=== PATIENT | male | born 1945 | race Caucasian/White ===

== ENCOUNTER 2016-07-28 07:48 | Outpatient (CLI) | payer MEDICARE, OTHER ==
[2016-07-28] MEDS ORDERED: GADOBUTROL 10 MMOL/10 ML VIAL IVP ONE (08:56)
== END 2016-07-28 07:49 | disposition home or self-care (01) ==
DX: R41.3 Other amnesia (principal)
CPT/HCPCS: 70553; A9585

== ENCOUNTER 2016-09-24 11:39 | Day surgery (SDC) | payer MEDICARE, OTHER ==
[2016-09-24] MEDS ORDERED: LACTATED RINGERS 1,000 ML IV ONE ×2 (11:46→13:30)
[2016-09-24] MEDS ORDERED: MIDAZOLAM 2 MG/2 ML VIAL IVP ONE (12:58)
[2016-09-24] MEDS ORDERED: fentaNYL 100 MCG/2 ML VIAL IVP ONE (12:58)
[2016-09-24 14:14] VITALS: BP 102/53
== END 2016-09-24 11:40 | disposition home or self-care (01) ==
LOC: SDS 11:39
PROVIDERS: ATTEND Surgery
PROC: 0DBL8ZX Excision of Transverse Colon, Via Natural or Artificial Opening Endoscopic, Diagnostic (ICD-10-PCS; 2016-09-24)
PROC: 0DBM8ZX Excision of Descending Colon, Via Natural or Artificial Opening Endoscopic, Diagnostic (ICD-10-PCS; principal; 2016-09-24 12:45)
DX: R19.4 Change in bowel habit (principal); K57.30 Diverticulosis of large intestine without perforation or abscess without bleeding; D12.4 Benign neoplasm of descending colon; D12.3 Benign neoplasm of transverse colon; K64.8 Other hemorrhoids; E11.9 Type 2 diabetes mellitus without complications; F17.210 Nicotine dependence, cigarettes, uncomplicated; J44.9 Chronic obstructive pulmonary disease, unspecified; F32.9 Major depressive disorder, single episode, unspecified; I10 Essential (primary) hypertension; Z79.4 Long term (current) use of insulin; Z82.61 Family history of arthritis; Z81.8 Family history of other mental and behavioral disorders; Z79.82 Long term (current) use of aspirin
CPT/HCPCS: 45385; J7120; 88305

== ENCOUNTER 2017-08-24 12:05 | Outpatient (CLI) | payer MEDICARE, OTHER ==
[2017-08-24] MEDS ORDERED: IOPAMIDOL-300 50 ML VIAL ONE (12:21)
[2017-08-24] MEDS ORDERED: IOPAMIDOL-300 100 ML VIAL ONE (12:21)
[2017-08-24 13:22] LABS: CREATININE 1.5 mg/dL (0.6-1.2)
[2017-08-24] MEDS ORDERED: IOPAMIDOL-300 50 ML VIAL PO ONE (15:04)
[2017-08-24] MEDS ORDERED: IOPAMIDOL-300 100 ML VIAL IVP ONE (15:04)
--- NOTE | 2017-08-25 14:11 | CT Report ---
EXAM: CT ABDOMEN AND PELVIS EXAM DATE: 08/24/2017 01:43 PM. CLINICAL HISTORY: ABDOMINAL MASS. COMPARISONS: None. TECHNIQUE: Routine helical CT imaging was performed through the abdomen and pelvis. IV contrast: ISOV UE 300 80mL. Enteric contrast: Positive. Reconstructions: Coronal and sagittal. In accordance with CT protocol optimization, one or more of the following dose reduction techniques w ere utilized for this exam: automated exposure control, adjustment of mA and/or KV based on patient s ize, or use of iterative reconstructive technique. FINDINGS: Lung Bases: Mild interstitial scarring at the lung bases. Indeterminate 3 mm RML nodule (3/9). Liver: Normal. No masses. Gallbladder/Bile Ducts: Unremarkable. Spleen: Normal. Pancreas: Normal. Adrenal Glands: Normal. Kidneys: None starting 2 mm left lower pole renal calculus. No masses or hydronephrosis. Peritoneal Cavity/Bowel: Extensive primarily sigmoid colonic diverticulosis without convincing focal evidence of acute diverticulitis. No free fluid, free air or adenopathy. No masses or acute inflammat ory process. Appendix is not clearly visualized; no pericecal inflammatory changes are evident. Pelvic Organs: Coarse prostate calcifications. The bladder and visualized pelvic organs are otherwise within normal limits. Vasculature: No aneurysms or other significant abnormality. Atherosclerotic arterial calcifications a re present. Bones: No significant abnormality. Other: There is a small fat-containing umbilical hernia. There is a small fat-containing supraumbilic al ventral hernia. There are small fat-containing inguinal hernias or cord lipomata bilaterally, left larger than right. IMPRESSION: 1. No convincing acute abdominopelvic process. 2. Fat-containing umbilical, supraumbilical ventral hernias. 3. Diverticulosis. 4. Indeterminate 3 mm pulmonary nodule. Consider [address] follow-up to demonstrate stability . 5. Other findings as noted above. [facility] Referring Provider Line: [phone] SITE ID: [id number]
== END 2017-08-24 12:06 | disposition home or self-care (01) ==
LOC: DI 12:05
PROVIDERS: ATTEND Family Medicine
DX: R19.00 Intra-abdominal and pelvic swelling, mass and lump, unspecified site (principal); K42.9 Umbilical hernia without obstruction or gangrene; K43.9 Ventral hernia without obstruction or gangrene; K57.30 Diverticulosis of large intestine without perforation or abscess without bleeding
CPT/HCPCS: 74177; 82565; Q9967

== ENCOUNTER 2017-09-06 11:32 | Outpatient (CLI) | payer MEDICARE, OTHER ==
[2017-09-06 19:44] LABS: CALCIUM 9.5 mg/dL (8.5-10.3); CREATININE 1.1 mg/dL (0.6-1.2)
[2017-09-06 19:52] LABS: HEMOGLOBIN A1C 0.86 g/dL; HEMOGLOBIN A1C % 7.1 % (4.6-6.2)
== END 2017-09-06 11:33 | disposition home or self-care (01) ==
LOC: LAB.WCP 11:32
PROVIDERS: ATTEND Family Medicine
DX: E10.9 Type 1 diabetes mellitus without complications (principal)
CPT/HCPCS: 36415; 80048; 82043; 83036

== ENCOUNTER 2017-12-24 06:07 | Day surgery (SDC) | payer MEDICARE, OTHER ==
[2017-12-24] MEDS ORDERED: ceFAZolin 2 GM/50 ML 2 GM/50 ML BAG IV ONE (06:28)
[2017-12-24] MEDS ORDERED: LACTATED RINGERS 1,000 ML IV ONE ×2 (06:50→08:17)
[2017-12-24] MEDS ORDERED: BUPIVACAINE 0.5% PF 30 ML VIAL ONE (07:10)
--- NOTE | 2017-12-24 07:19 | ANESTHESIA ---
Pre-Anesthesia VS, & Labs - Diagnosis Ventral and Umbilical Hernia - Procedure Ventral and Umbilical Hernia Repair Vital Signs: Temp Pulse Resp BP Pulse Ox 36.6 C 16 132/74 H 95 12/24/17 06:34 12/24/17 06:34 12/24/17 06:34 12/24/17 06:34 Pulse 69 Height 5 ft 7 in Weight (kg) 87.7 kg Body Mass Index 29.7 - NPO Last Fluid Intake: 0430 CL - Lab Results Lab results reviewed: Yes Home Medications and Allergies Home Medications: Ambulatory Orders Medication Instructions Recorded Confirmed Acetaminophen [Tylenol] 650 mg PO Q6H PRN 02/10/14 12/24/17 Atorvastatin [Lovastatin] 20 mg PO DAILY 02/10/14 12/24/17 Bupropion HCl [Wellbutrin] 75 mg PO DAILY 02/10/14 12/24/17 Cholecalciferol (Vitamin D3) 1,000 unit PO DAILY 02/10/14 12/24/17 [Vitamin D3] Insulin Aspart (Vial) [NovoLOG] 10 - 26 unit SQ AC 02/10/14 12/24/17 Insulin Glargine,Hum.rec.anlog 45 unit SQ TID 02/10/14 12/24/17 [Lantus] Lisinopril 20 mg PO DAILY 11/11/14 12/24/17 Tiotropium [place] [Spiriva] 18 mcg IH DAILY 11/11/14 12/24/17 [place]-3 Acid Ethyl Esters [Lovaza] 1 cap PO QID 12/24/17 12/24/17 Allergies/Adverse Reactions: Allergies Allergy/AdvReac Type Severity Reaction Status Date / Time No Known Drug Allergies Allergy Verified 02/10/14 11:47 Anes History & Medical History - Anesthetic History Anesthesia Complications: reports: No previous complications Family history of Anesthesia Complications: Denies Family history of Malignant Hyperthermia: Denies - Medical History Cardiovascular: reports: Hypertension, High cholesterol Pulmonary: reports: COPD, Emphysema, Other Gastrointestinal: reports: GERD, Colon polyps, Hemorrhoids, Pancreatitis, Diverticulitis Urinary: reports: None Neuro: reports: Dementia Musculoskeletal: reports: None Endocrine/Autoimmune: reports: Type 1 diabetes Blood Disorders: reports: None Skin: reports: None Smoking Status: Current every day smoker Psychosocial: reports: Cannabis - Surgical History General: Colonoscopy Eyes Ears Nose Throat (EENT): Cataracts Orthopedic: Arthroscopic surgery Exam General: Alert, Oriented x3, Cooperative, No acute distress Dental: WNL Mouth Openin Fingerbreadth Neck Mobility: Normal Mallampati classification: II Thyromental Distance: 4-6 cm Respiratory: Lungs clear, Normal breath sounds, No respiratory distress, No accessory muscle use Cardiovascular: Regular rate, Normal S1, Normal S2, No murmurs Mental/Cognitive Status: Alert/Oriented X3, Normal for patient Cognitive Status: Memory impairment Plan Anesthesia Type: General Consent for Procedure(s) Verified and Reviewed: Yes Code Status: Attempt Resuscitation ASA classification: 3-Severe systemic disease Is this case an emergency?: No
[2017-12-24] MEDS ORDERED: BUPIVACAINE 0.5% PF 30 ML VIAL INFIL ONE ×2 (08:13→09:09)
[2017-12-24] MEDS ORDERED: ONDANSETRON 4 MG/2 ML VIAL IVP ONE (09:00)
[2017-12-24] MEDS ORDERED: HYDROmorphone 1 MG/ML AMP IVP ONE (09:00)
[2017-12-24] MEDS ORDERED: PROPOFOL 200 MG/20 ML VIAL IVP ONE (09:00)
[2017-12-24] MEDS ORDERED: fentaNYL 100 MCG/2 ML VIAL IVP ONE (09:00)
[2017-12-24] MEDS ORDERED: ROCURONIUM 50 MG/5 ML VIAL IVP ONE (09:00)
[2017-12-24] MEDS ORDERED: ePHEDrine 50 MG/ML VIAL IVP ONE (09:00)
[2017-12-24] MEDS ORDERED: IPRATROPIUM/ALBUTEROL 3 ML NEB INH ONE ×3 (09:32→11:15)
--- NOTE | 2017-12-24 09:43 | OPERATIVE REPORT ---
Operative Report - General Procedure Date: 12/24/17 Planned Procedure: Ventral herniorrhaphy and umbilical herniorrhaphy Pre-Op Diagnosis: Ventral hernia and umbilical hernia Procedure Performed: Ventral herniorrhaphy 2 and umbilical herniorrhaphy (combined defects to result in one repair) with mesh Post Op Diagnosis: Ventral hernia 2 and umbilical hernia - Procedure Note Primary Surgeon: Valente Mena MD Anesthesia Provider: Yamilka Bryant CRNA Anesthesia Technique: General LMA, Local (30 mL of half percent Marcaine) IV Fluids (mL): 1,600 Estimated Blood Loss (mL): 10 Complications: None. - Other Other Information/Narrative: OPERATIVE DESCRIPTION/REPORT: After verbal and written informed consent was obtained detailing the risks of infection, bleeding requiring transfusion with its risks, nerve injury, and , and after I met with the patient confirming the surgery and the site of the surgery, the patient was brought to the operative suite and placed supine on the operating table. Great care was taken to avoid pressure points to prevent pressure necrosis or nerve injury. Monitoring devices were applied along with TEDs and pneumatic compressive stockings (to prevent DVT). The patient received preoperative antibiotics for surgical prophylaxis. Yamilka Bryant CRNA sedated and anesthetized the patient for the entire procedure. The patient was prepped and draped in the usual sterile manner. With the patient draped my initials were clearly visible. A "time in" then confirmed that the patient was identified with 3 identifiers (name, date and medical record number), the history and physical was in the chart, the signed consent confirming the procedure was in the chart, the patient was in the correct position, the aforementioned prophylactic measures were in place or given, we had the correct personel and equipment to complete the procedure and that anesthesia, surgery and nursing were given an opportunity to express any concerns. With the agreement of everyone in the room, we proceeded with the operation. A vertical midline incision was made overlying the mass at the ventral hernia site and dissection was carried down to the hernia sac using a combination of Metzenbaum scissors, scalpel, and Bovie electrocautery. The sac was resected using Bovie electrocautery. The sac was cleared of overlying adherent tissue, and the fascial defect was delineated. Digital examination of the patient's anterior abdominal wall showed no further hernias superiorly to this defect but there was another hernia inferior to this defect mcc between this defect in the umbilical defect. The skin incision was then lengthened inferiorly to access this hernia and in a similar manner the hernia sac was resected. An incision was then made vertically at the umbilicus and dissection down to the hernia sac again was done in a similar manner and the sac again was resected using Bovie electrocautery. Rather than fix 3 separate hernias with 3 separate pieces of mesh the small fascial bridges that were between these hernias were incised using Bovie electrocautery thus combining all the defects into one larger defect. This defect measured just under 6 cm in length. Again I felt around the patient's abdomen and there was some abnormal tissue inferior to the fascial defect which was quite granular in nature. This did appear to be fat but it was much harder than fat should be. This was resected using serial application of Bovie electrocautery and sent for pathologic evaluation. The fascia was cleared of any adherent tissue for a distance 1.5 cm from the combined defect. The defect was closed using an 8 cm in diameter Covidien Parietex (Ref# [id number], Lot# [id number], use by date 2022-03-05) sewing it in place using interrupted 2-0 PDS at the stations of the clock. The fascia was then sewn over this using #1 PDS to increase the contact with the mesh. The subcutaneous tissues were copiously irrigated, and then closed using an interrupted 2-0 Vicryl. The skin and fascia was then injected with 1/2% Marcaine. Meticulous hemostasis was obtained using Bovie electrocautery. The skin incision was approximated with a running 4-0 Monocryl. At this point a time out was performed that confirmed that all the counts were correct, the procedure that was performed, the blood loss, the IV fluids administered, and the patient s condition. Having tolerated the procedure well, the patient was subsequently extubated and taken to recovery room in good and stable condition.
[2017-12-24] MEDS ORDERED: fentaNYL 100 MCG/2 ML VIAL ONE (09:49)
[2017-12-24] MEDS ORDERED: oxyCOD/ACETAMIN 5 MG/325 MG TABLET PO ONE (10:53)
[2017-12-24 11:38] VITALS: BP 148/80
== END 2017-12-24 06:08 | disposition home or self-care (01) ==
LOC: SDS 06:07
PROVIDERS: ATTEND Surgery
PROC: 0WUF0JZ Supplement Abdominal Wall with Synthetic Substitute, Open Approach (ICD-10-PCS; principal; 2017-12-24 07:30)
DX: K42.9 Umbilical hernia without obstruction or gangrene (principal); K43.9 Ventral hernia without obstruction or gangrene; E10.9 Type 1 diabetes mellitus without complications; I10 Essential (primary) hypertension; F17.210 Nicotine dependence, cigarettes, uncomplicated; E78.00 Pure hypercholesterolemia, unspecified; J43.9 Emphysema, unspecified; F03.90 Unspecified dementia, unspecified severity, without behavioral disturbance, psychotic disturbance, mood disturbance, and anxiety; K21.9 Gastro-esophageal reflux disease without esophagitis; Z79.4 Long term (current) use of insulin; Z79.899 Other long term (current) drug therapy
CPT/HCPCS: 49560; 49585; A9270; C1781; J0690; J1170; J7120

== ENCOUNTER 2018-12-03 10:29 | Outpatient (CLI) | payer MEDICARE, OTHER ==
[2018-12-03 10:59] LABS: CALCIUM 9.4 mg/dL (8.5-10.3); CREATININE 1.3 mg/dL (0.6-1.2)
[2018-12-03 11:09] LABS: HB2 TOTAL 15.1 g/dL; HEMOGLOBIN A1C 0.82 g/dL; HEMOGLOBIN A1C % 7.1 % (4.6-6.2)
[2018-12-03 12:23] LABS: CREATININE,URINE 54.2 mg/dL; MICROALBUM/CREATININE RATIO,UR 134.7 ug/mg (<30.0); MICROALBUMIN,URINE 7.3 mg/dL (0-300.0)
--- NOTE | 2018-12-05 04:34 | XRAY Report ---
Reason: E109,LUMBAR RADICULOPATHY,LEFT Procedure Date: 12/03/2018 Accession Number: [id number] / [id number] Procedure: XR - Lumbar Spine Complete CPT Code: FULL RESULT: EXAM: LUMBOSACRAL SPINE RADIOGRAPHY EXAM DATE: 12/03/2018 11:42 AM. CLINICAL HISTORY: E109,LUMBAR RADICULOPATHY,LEFT. COMPARISONS: ABDOMEN/PELVIS W/ 08/24/2017 1:29 PM. TECHNIQUE: 3 views. FINDINGS: Alignment: Mild dextroscoliosis of the lumbar spine. Bones: Five [id number] lumbar vertebral bodies are present as well as a transitional lumbosacral vertebral body designated as S1. No fractures or bone lesions. Disks: Moderate multilevel degenerative disk disease throughout the lumbar spine. Facets: Moderate facet joint arthropathy at L4-L5 and L5-S1. Sacroiliac Joints: Unremarkable. Soft Tissues: Normal. The visualized bowel gas pattern is normal. IMPRESSION: 1. No acute osseous abnormalities. 2. Mild dextroscoliosis of lumbar spine. 3. 5 lumbar type vertebrae and a transitional lumbosacral vertebral body designated as S1. 4. Moderate multilevel degenerative disk disease. 5. Moderate facet joint arthropathy at L4-L5 and L5-S1 [facility]
== END 2018-12-03 10:30 | disposition home or self-care (01) ==
LOC: LAB 10:29 → DI 10:30
PROVIDERS: ATTEND Family Medicine
DX: M51.36 Other intervertebral disc degeneration, lumbar region (principal); M47.816 Spondylosis without myelopathy or radiculopathy, lumbar region; M47.817 Spondylosis without myelopathy or radiculopathy, lumbosacral region; E10.9 Type 1 diabetes mellitus without complications; M41.86 Other forms of scoliosis, lumbar region
CPT/HCPCS: 36415; 72110; 80048; 82043; 82570; 83036

== ENCOUNTER 2019-01-30 10:26 | Outpatient (CLI) | payer MEDICARE, OTHER ==
--- NOTE | 2019-01-31 21:18 | XRAY Report ---
Reason: CERVICAL RADICULOPATHY Procedure Date: 01/30/2019 Accession Number: [id number] / [id number] Procedure: XRN - Cervical Spine 2 View CPT Code: FULL RESULT: EXAM: CERVICAL SPINE RADIOGRAPHY EXAM DATE: 01/30/2019 10:51 AM. CLINICAL HISTORY: Cervical radiculopathy. COMPARISONS: None. TECHNIQUE: 3 views. FINDINGS: Alignment: Normal. No spondylolisthesis or scoliosis. Bones and Disk Levels: C4 vertebral body not seen, possibly posttraumatic changes or unusual congenital variant. C7 not seen on the lateral view. Severe cervical facet degenerative changes diffusely. Soft Tissues: Normal. No prevertebral soft tissue swelling. The visualized lung apices are clear. IMPRESSION: 1. Incompletely viewed cervical spine with C7 not seen on the lateral view. 2. Unusual appearance of C3 through C5 with possible fusion but with less than expected vertebral body height loss. This may reflect posttraumatic or developmental changes. If indicated, MRI or CT could be considered. 3. Diffuse facet degenerative changes. [facility]
== END 2019-01-30 10:27 | disposition home or self-care (01) ==
LOC: DI.N 10:26
PROVIDERS: ATTEND Family Medicine
DX: M47.812 Spondylosis without myelopathy or radiculopathy, cervical region (principal)
CPT/HCPCS: 72040

== ENCOUNTER 2019-02-19 12:35 | Outpatient (CLI) | payer MEDICARE, OTHER ==
--- NOTE | 2019-02-20 13:21 | MRI Report ---
Reason: CERVICAL RADULOPATHY Procedure Date: 02/19/2019 Accession Number: [id number] / [id number] Procedure: MRI - Cervical Spine W/O CPT Code: FULL RESULT: EXAM: MRI CERVICAL SPINE WITHOUT CONTRAST EXAM DATE: 02/19/2019 01:43 PM. CLINICAL HISTORY: CERVICAL RADICULOPATHY. COMPARISONS: 01/30/2019 cervical spine radiographs.. TECHNIQUE: Multiplanar, multisequence T1-weighted and fluid-sensitive sequences of the cervical spine without contrast. Other: None. FINDINGS: Neurologic Structures: The visualized posterior fossa structures are unremarkable. No signal abnormality in the visualized spinal cord. Alignment: Grade 1 anterolisthesis of C2 and C3 measures 2 mm. Grade 1 anterolisthesis C6 on C7 measures 2 mm. Bone Marrow: No fractures. No osseous lesions. Vertebral body heights are maintained. Mixed Modic type I and II endplate degenerative changes surround the EC 5-C6 disk space asymmetric to the right. There are also Modic type I endplate degenerative changes surrounding the C4-C5 disk space. Interspace Levels/Facets: C1-C2: Unremarkable. C2-C3: Severe left and moderate right facet arthropathy. Shallow central disk protrusion. Mild central canal and moderate left foraminal stenosis. C3-C4: Severe intervertebral disk height loss with partial osseous bridging across the disk space. Severe left and mild right facet arthropathy. Broad-based disk-osteophyte complex partially effaces the ventral CSF without impinging upon the cord. Moderate left and mild right foraminal stenosis. C4-C5: All intervertebral disk height loss. No disk bulge or protrusion. Severe bilateral facet arthropathy and asymmetric right uncovertebral hypertrophy results in moderate right and mild left foraminal stenosis without central canal stenosis. Subchondral edema is present in the bilateral facets. C5-C6: Severe intervertebral disk height loss. Broad-based disk-osteophyte complex with moderate bilateral facet arthropathy results in effacement of the ventral CSF and flattening of the cord with partial effacement of the dorsal CSF. Severe right and mild left foraminal stenosis. C6-C7: Mild intervertebral disk height loss. Shallow central disk protrusion. Moderate bilateral facet arthropathy. Partial effacement of the ventral CSF without cord impingement. No foraminal stenosis. C7-T1: Unremarkable. Musculature: Normal. No edema or fatty atrophy. Other: The paravertebral and prevertebral soft tissues are normal. IMPRESSION: 1. As C5-C6, there is moderate central canal stenosis with severe right and mild left foraminal stenosis. 2. Shallow disk-osteophyte complexes cause mild central canal stenosis at C2-C3, C3-C4, and C6-C7. 3. Foraminal stenosis is moderate on the left at C2-C3 and C3-C4 and moderate on the right at C4-C5. 4. Severe bilateral facet arthropathy at C4-C5 is associated with subchondral marrow edema. [facility]
== END 2019-02-19 12:36 | disposition home or self-care (01) ==
LOC: DI 12:35
PROVIDERS: ATTEND Family Medicine
DX: M47.812 Spondylosis without myelopathy or radiculopathy, cervical region (principal); M50.21 Other cervical disc displacement, high cervical region; M50.31 Other cervical disc degeneration, high cervical region; M48.02 Spinal stenosis, cervical region; M43.12 Spondylolisthesis, cervical region
CPT/HCPCS: 72141

== ENCOUNTER 2020-05-26 19:50 | Outpatient (CLI) | payer MEDICARE, OTHER | END 2020-05-26 19:51 | disposition home or self-care (01) | LOC: COV 19:50 | PROVIDERS: ATTEND Surgery | DX: Z01.812 Encounter for preprocedural laboratory examination (principal); K40.90 Unilateral inguinal hernia, without obstruction or gangrene, not specified as recurrent; E11.9 Type 2 diabetes mellitus without complications; Z79.4 Long term (current) use of insulin; Z20.822 Contact with and (suspected) exposure to COVID-19 ==

== ENCOUNTER 2020-05-31 07:40 | Day surgery (SDC) | payer MEDICARE, OTHER ==
[~2020-05-31 07:40] MED LIST: ceFAZolin 2 GM/50 ML 0 GM/0 ML BAG IV ONE
[2020-05-31 08:05] VITALS: BP 140/86
[2020-05-31] MEDS ORDERED: LACTATED RINGERS 1,000 ML IV ONE (08:28)
== END 2020-05-31 07:41 | disposition home or self-care (01) ==
LOC: SDS 07:40
PROVIDERS: ATTEND Surgery
DX: Z53.9 Procedure and treatment not carried out, unspecified reason (principal)

== ENCOUNTER 2020-06-02 18:42 | Outpatient (CLI) | payer MEDICARE, OTHER | END 2020-06-02 18:43 | disposition home or self-care (01) | LOC: COV 18:42 | PROVIDERS: ATTEND Internal Medicine | DX: Z01.812 Encounter for preprocedural laboratory examination (principal); K40.90 Unilateral inguinal hernia, without obstruction or gangrene, not specified as recurrent; E11.9 Type 2 diabetes mellitus without complications; Z79.4 Long term (current) use of insulin; Z20.822 Contact with and (suspected) exposure to COVID-19 ==

== ENCOUNTER 2020-06-09 20:06 | Outpatient (CLI) | payer MEDICARE, OTHER | END 2020-06-09 20:07 | disposition home or self-care (01) | LOC: COV 20:06 | PROVIDERS: ATTEND Surgery | DX: Z01.812 Encounter for preprocedural laboratory examination (principal); K40.90 Unilateral inguinal hernia, without obstruction or gangrene, not specified as recurrent; E11.9 Type 2 diabetes mellitus without complications; Z79.4 Long term (current) use of insulin; Z20.822 Contact with and (suspected) exposure to COVID-19 ==

== ENCOUNTER 2020-06-14 07:18 | Day surgery (SDC) | payer MEDICARE, OTHER ==
[~2020-06-14 07:18] MED LIST changes: -ceFAZolin 2 GM/50 ML 0 GM/0 ML BAG IV ONE; +ceFAZolin 2 GM/50 ML 2 GM/50 ML BAG IV ONE
[2020-06-14] MEDS ORDERED: LACTATED RINGERS 1,000 ML IV ONE ×2 (07:37→10:54)
[2020-06-14] MEDS ORDERED: fentaNYL 100 MCG/2 ML VIAL ONE (07:57)
[2020-06-14] MEDS ORDERED: KETAMINE 500 MG/10 ML VIAL ONE (07:57)
[2020-06-14] MEDS ORDERED: MIDAZOLAM 2 MG/2 ML VIAL ONE (07:57)
[2020-06-14] MEDS ORDERED: PROPOFOL 200 MG/20 ML VIAL IVP ONE (07:58)
[2020-06-14] MEDS ORDERED: ONDANSETRON 4 MG/2 ML VIAL ONE (08:05)
[2020-06-14] MEDS ORDERED: BUPIVACAINE 0.25% PF 30 ML VIAL ONE (08:30)
--- NOTE | 2020-06-14 08:40 | ANESTHESIA ---
Pre-Anesthesia VS, & Labs - Diagnosis left inguinal hernia - Procedure left inguinal hernia repair Vital Signs: Temp Pulse Resp BP Pulse Ox 36.7 C 102 H 16 146/86 H 97 06/14/20 07:39 06/14/20 07:39 06/14/20 07:39 06/14/20 07:39 06/14/20 07:39 Height: 5 ft 5 in Weight (kg): 73.5 kg Body Mass Index: 26.9 BMI Classification: Overweight - NPO Other (0545 gingerale) - Lab Results Current Lab Results: Laboratory Tests 06/14/20 07:49: POC Whole Bld Glucose 211 H Home Medications and Allergies Acetaminophen [Tylenol] 650 mg PO Q6H PRN 02/10/14 Atorvastatin [Lovastatin] 40 mg PO DAILY 02/10/14 Bupropion HCl [Wellbutrin] 150 mg PO DAILY 02/10/14 Cholecalciferol (Vitamin D3) [Vitamin D3] 5,000 unit PO DAILY 02/10/14 Insulin Aspart (Vial) [NovoLOG] 20 - 24 unit SQ TIDWM 02/10/14 Insulin Glargine,Hum.rec.anlog [Lantus] 40 unit SQ TID 02/10/14 Lisinopril 20 mg PO DAILY 11/11/14 Tiotropium [place] [Spiriva] 18 mcg IH DAILY 11/11/14 [place]-3 Acid Ethyl Esters [Lovaza] 1 cap PO QID 12/24/17 Cyanocobalamin (Vitamin B-12) [Vitamin B-12] 5,000 mcg PO DAILY 05/19/20 Fluticasone Propionate 2 spray NS DAILY PRN 05/19/20 Meloxicam [Mobic] 7.5 mg PO DAILY 05/19/20 Allergies/Adverse Reactions: Allergies Allergy/AdvReac Type Severity Reaction Status Date / Time No Known Drug Allergies Allergy Verified 02/10/14 11:47 Anes History & Medical History - Anesthetic History Anesthesia Complications: reports: No previous complications Family history of Anesthesia Complications: Denies Family history of Malignant Hyperthermia: Denies - Medical History Cardiovascular: reports: Hypertension, High cholesterol Pulmonary: reports: COPD, Emphysema Gastrointestinal: reports: GERD, Colon polyps, Hemorrhoids, Pancreatitis, Diverticulitis Urinary: reports: None Neuro: reports: Dementia Musculoskeletal: reports: Chronic back pain Endocrine/Autoimmune: reports: Type 1 diabetes Blood Disorders: reports: None Skin: reports: None Smoking Status: Current every day smoker - Surgical History General: Colonoscopy Eyes Ears Nose Throat (EENT): Cataracts Orthopedic: Arthroscopic surgery, Spine surgery Exam Dental: WNL Mouth Openin Fingerbreadth Neck Mobility: Normal Mallampati classification: II Plan Anesthesia Type: MAC Consent for Procedure(s) Verified and Reviewed: Yes Code Status: Attempt Resuscitation ASA classification: 3-Severe systemic disease Is this case an emergency?: No
[2020-06-14] MEDS ORDERED: LIDOCAINE 2%-EPI 1:100000 20 ML MDV ONE (08:44)
--- NOTE | 2020-06-14 08:59 | HISTORY & PHYSICAL EXAMINATION ---
Chief Complaint - Chief Complaint Chief Complaint: left groin bulge History of Present Illness - History Obtained From Records Reviewed: yes History obtained from: patient Exam Limitations: none - History of Present Illness HPI Comment/Other: Progressive left inguinal hernia. History - Past Medical History Cardiovascular: reports: Hypertension, High cholesterol Respiratory: reports: COPD, Emphysema Neuro: reports: Dementia Endocrine/Autoimmune: reports: Type 1 diabetes GI: reports: GERD, Colon polyps, Hemorrhoids, Pancreatitis, Diverticulitis : reports: None HEENT: reports: Chronic sinusitis, Chronic hearing loss Psych: reports: Depression, Anxiety Musculoskeletal: reports: Chronic back pain Derm: reports: None MRSA Hx?: No - Past Surgical History General: reports: Colonoscopy Ortho: reports: Arthroscopic surgery, Spine surgery HEENT: reports: Cataracts Meds/Allgy - Home Medications Home Medications: Ambulatory Orders Medication Instructions Recorded Confirmed Acetaminophen [Tylenol] 650 mg PO Q6H PRN 02/10/14 05/31/20 Atorvastatin [Lovastatin] 40 mg PO DAILY 02/10/14 05/31/20 Bupropion HCl [Wellbutrin] 150 mg PO DAILY 02/10/14 05/31/20 Cholecalciferol (Vitamin D3) 5,000 unit PO DAILY 02/10/14 05/31/20 [Vitamin D3] Insulin Aspart (Vial) [NovoLOG] 20 - 24 unit SQ TIDWM 02/10/14 05/31/20 Insulin Glargine,Hum.rec.anlog 40 unit SQ TID 02/10/14 05/31/20 [Lantus] Lisinopril 20 mg PO DAILY 11/11/14 05/31/20 Tiotropium [place] [Spiriva] 18 mcg IH DAILY 11/11/14 05/31/20 [place]-3 Acid Ethyl Esters [Lovaza] 1 cap PO QID 12/24/17 05/31/20 Cyanocobalamin (Vitamin B-12) 5,000 mcg PO DAILY 05/19/20 05/31/20 [Vitamin B-12] Fluticasone Propionate 2 spray NS DAILY PRN 05/19/20 05/31/20 Meloxicam [Mobic] 7.5 mg PO DAILY 05/19/20 05/31/20 - Allergies Allergies/Adverse Reactions: Allergies Allergy/AdvReac Type Severity Reaction Status Date / Time No Known Drug Allergies Allergy Verified 02/10/14 11:47 Review of Systems - Other Findings Other Findings: 10 pt ros as above otherwise unremarkable Exam - Vital Signs Reviewed Vital Signs: Yes Vital Signs: Vital Signs x48h Temp Pulse Resp BP Pulse Ox 06/14/20 07:39 36.7 C 102 H 16 146/86 H 97 - Physical Exam General Appearance: positive: No acute distress, Alert Eyes Bilateral: positive: Normal inspection, EOMI Neck: positive: No JVD, Trachea midline Respiratory: positive: No respiratory distress, Breath sounds nml Cardiovascular: positive: Regular rate & rhythm Abdomen: positive: No distention, Other (left inguinal hernia present) Neurologic/Psychiatric: positive: Oriented x3 Conclusion/Plan - Problem List (1) Inguinal hernia Conclusion/Plan: left inguinal hernia. progressing in size and discomfort. Plan open repair with mesh. parq held and consent obtained
[2020-06-14] MEDS ORDERED: LIDOCAINE 2%-EPI 1:100000 20 ML MDV SUBQ ONE ×2 (09:26)
[2020-06-14] MEDS ORDERED: BUPIVACAINE 0.25% PF 30 ML VIAL SUBQ ONE ×2 (09:26)
[2020-06-14] MEDS ORDERED: HYDROcod/ACETAM 5/325 MG TABLET PO PRN (10:56)
--- NOTE | 2020-06-14 10:56 | OPERATIVE REPORT ---
Operative Report - General Procedure Date: 06/14/20 Planned Procedure: open left inguinal hernia with mesh Pre-Op Diagnosis: left inguinal hernia Procedure Performed: open lih repair with mesh Post Op Diagnosis: indirect and direct - Procedure Note Primary Surgeon: dorota tineo Anesthesia Technique: Local, MAC Pathology: not sent Complications: none
[2020-06-14 11:00] VITALS: BP 106/60
--- NOTE | 2020-06-14 11:47 | OPERATIVE REPORT ---
DATE OF SERVICE: 06/14/2020 Physician: Marc Duke MD PREOPERATIVE DIAGNOSIS: Left inguinal hernia. POSTOPERATIVE DIAGNOSIS: Left inguinal hernia, large direct and indirect. PROCEDURE PERFORMED: Open left inguinal hernia repair with mesh, [place]. SURGEON: Marc Duke MD. ROLL CUTTING OPERATOR: None. ANESTHESIA: 1. Monitored anesthesia care. 2. IV sedation and local anesthesia. COMPLICATIONS: None. 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 ESTIMATED BLOOD LOSS: None. COMPLICATIONS: None. PROSTHETIC: Polypropylene mesh. INDICATIONS FOR PROCEDURE: The patient is an active 75-year-old gentleman with a large symptomatic left inguinal hernia. He presents for open repair with mesh. Risks discussed, alternatives discussed, all questions answered, and consent obtained. DETAILS OF PROCEDURE: The patient was properly identified and brought to the operating room and placed in supine position. Monitored anesthesia care was given as well as IV sedation. He was prepped and draped in a sterile fashion, given preoperative antibiotics. Local anesthetic was given throughout the procedure. A 6 cm incision was made in the direction of Nigel's lines just cephalad of the pubic tubercle. Dissection proceeded sharply. The superficial epigastric vein was identified, clamped, divided, and tied with 3-0 Vicryl. The aponeurosis was opened in the direction of its fibers, extending to the external ring. The cord structures were brought up. The ilioinguinal nerve was kept with the cord structures. 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 This was removed back to musculature to allow for repair. The cord structures were mobilized away from a large direct defect. The floor was repaired with a 2-0 silk pursestring suture, imbricating the large direct defect. The patient also had a large indirect hernia sac densely scarred to the cord structures. It was carefully peeled away and mobilized down to the internal ring. The indirect hernia sac was suture ligated with a 2-0 silk. Herniated preperitoneal adipose tissue was also removed. Polypropylene mesh was then cut to size with tails. It was secured at the pubic tubercle area along the shelving border of Poupart's ligament and medially along the musculature fascia of the internal plica. The medial tail of the mesh was secured to Poupart's ligament with 2 interrupted 0 Ethibond sutures, recreating the internal ring of appropriate size. The patient coughed, assuring a good sturdy repair. The aponeurosis was closed with a running 2-0 Vicryl. Christa's was closed with interrupted 3-0 Vicryl. Skin was closed with a running 4-0 Monocryl. He tolerated the procedure very well, transferred himself to the stretcher, and was brought to recovery in good condition. TD: 06/14/2020 11:23 CONCEPCIÓN
--- NOTE | 2020-06-14 12:23 | ANESTHESIA POST OP EVALUATION ---
Anesthesia Post Eval - Post Anesthesia Eval Vitals: Last Vital Signs Temp 37.6 C 06/14/20 10:49 Pulse 92 06/14/20 10:58 Resp 23 06/14/20 10:58 BP 106/60 06/14/20 10:58 Pulse Ox 93 06/14/20 10:58 CV Function Including HR & BP: positive: Stable Pain Control: positive: Satisfactory Nausea & Vomiting: positive: Negative Mental Status: positive: Patient Participates Respiratory Status: Airway Patent Hydration Status: Satisfactory Anesthesia Complications: positive: None
== END 2020-06-14 07:19 | disposition home or self-care (01) ==
LOC: SDS 07:18
PROVIDERS: ATTEND Surgery
DX: K40.90 Unilateral inguinal hernia, without obstruction or gangrene, not specified as recurrent (principal); E10.9 Type 1 diabetes mellitus without complications; I10 Essential (primary) hypertension; J43.9 Emphysema, unspecified; E78.00 Pure hypercholesterolemia, unspecified; E66.3 Overweight; Z68.26 Body mass index [BMI] 26.0-26.9, adult; K21.9 Gastro-esophageal reflux disease without esophagitis; F03.90 Unspecified dementia, unspecified severity, without behavioral disturbance, psychotic disturbance, mood disturbance, and anxiety; G89.29 Other chronic pain; M54.9 Dorsalgia, unspecified; F32.9 Major depressive disorder, single episode, unspecified; F41.9 Anxiety disorder, unspecified; F17.200 Nicotine dependence, unspecified, uncomplicated; H91.90 Unspecified hearing loss, unspecified ear; Z79.4 Long term (current) use of insulin; Z79.899 Other long term (current) drug therapy
CPT/HCPCS: 49507; C1781; J0690; J7120

== ENCOUNTER 2020-10-19 11:00 | Outpatient (CLI) | payer MEDICARE, OTHER ==
--- NOTE | 2020-10-19 15:49 | CT Report ---
PROCEDURE: CHEST WO INDICATIONS: LEFT UPPER LOBE PULMONARY NODULE TECHNIQUE: Noncontrast 5 mm thick sections acquired from the pulmonary apices to the posterior costophrenic angl es. 7 mm thick coronal and sagittal MIP reformats were then acquired. For radiation dose reduction, the following was used: automated exposure control, adjustment of mA and/or kV according to patient size. COMPARISON: Similar chest CT 02/03/2020 reviewed FINDINGS: Image quality: Excellent. Lungs and pleura: No acute air space opacities but again noted is centrilobular emphysema and a comb ination of both interstitial prominence and a mild degree of lung base pulmonary fibrotic change. The nodule seen within the left upper lobe abutting the medial aspect of the major fissure and axial lev el just below that of the ziyad is best seen on CT series 4 image 171. This measures 7 mm as was pre viously the case. A previously present but not previously described right lung apex nodule is again s een and has not changed in size or morphology either. It measures 4 mm in maximal dimension, is sligh tly spiculated, and is best seen on current CT series 4 image 50.. No pleural effusions or pneumotho rax. Central and peripheral airways are patent and normal in caliber. Mediastinum: Heart size is normal. No pericardial effusion. No mediastinal adenopathy by size crit eria. Thoracic aorta and central pulmonary arteries are normal in size. Esophagus is normal in tae karey. No hiatal hernia. Bones and chest wall: No suspicious bony lesions. No vertebral body compression fractures. No axil milagro or supraclavicular adenopathy by size criteria. The thyroid is normal in size and there are no incidental findings. Abdomen: Visualized upper abdominal solid organs and bowel loops appear normal in the absence of con trast. IMPRESSION: The lung parenchyma shows evidence of long-standing smoking history, and centrilobular emphysema. Thi s places the patient at significant elevated risk for development of malignancy. No change has occurr ed from the CT scanning 02/03/2020 but a right lung apex 4 mm nodule previously present is better visu alized on the current study and has been added to the previously described nodule on the left as ambrosio anting attention during follow-up scanning. Ideally the patient would be enrolled in a screening protocol utilizing noncontrast low-dose CT scann ing for follow-up at yearly intervals. If the patient is not currently enrolled in such a follow-up p rogram it is recommended that each of the 2 lung lesions be reevaluated in 1 year despite the absence of private branch exchange service advisor time given morphology and risk factors. No new nodule has developed. Reviewed by: Sly Fowler MD on 10/19/2020 3:48 PM PDT Approved by: Sly Fowler MD on 10/19/2020 3:48 PM PDT Station ID: [id number]
== END 2020-10-19 11:01 | disposition home or self-care (01) ==
LOC: DI 11:00
PROVIDERS: ATTEND Internal Medicine
DX: R91.1 Solitary pulmonary nodule (principal); J43.2 Centrilobular emphysema; Z87.891 Personal history of nicotine dependence

== ENCOUNTER 2022-02-01 12:55 | Outpatient (CLI) | payer MEDICARE, OTHER ==
--- NOTE | 2022-02-01 17:21 | Ultrasound Report ---
PROCEDURE: Testicle INDICATIONS: RIGHT SPERMATOCELE TECHNIQUE: Real-time scanning was performed of the scrotum and testicles, with image documentation. Color and p ulse Doppler interrogation was performed of both testicles. COMPARISON: None. FINDINGS: Right: Testicle is normal in size at 3.8 x 2.1 x 2.4 cm, and homogenous in echotexture. Epididymis demonstrates a cystic foci measuring 6 x 5 x 6 mm and 6 x 4 x 5 mm. No hydrocele or varicoceles. Ove rlying scrotal skin is normal in thickness. Foci of increased echogenicity are noted within the epid idymis. Left: Testicle is normal in size at 4.5 x 1.8 x 1.3 cm, and homogeneous in echotexture. Epididymis demonstrates cystic focus measuring 8 x 6 x 6 mm. hydrocele and varicocele are present. Overlying scr otal skin is normal in thickness. Doppler: Color and pulse Doppler demonstrate normal and symmetric arterial flow in both testicles. IMPRESSION: Bilateral epididymal cyst/spermatocele. Foci of increased echogenicity within the right epididymis possible related to calcifications. Reviewed by: Melania Joseph MD on 02/01/2022 5:20 PM PDT Approved by: Melania Joseph MD on 02/01/2022 5:20 PM PDT Station ID: [id number]
== END 2022-02-01 12:56 | disposition home or self-care (01) ==
LOC: DI 12:55
PROVIDERS: ATTEND Emergency Medicine
DX: N43.40 Spermatocele of epididymis, unspecified (principal)

== ENCOUNTER 2023-02-05 08:59 | Outpatient (CLI) | payer MEDICARE, OTHER ==
--- NOTE | 2023-02-05 14:04 | CT Report ---
PROCEDURE: CHEST WO INDICATIONS: PULMONARY NODULE TECHNIQUE: Noncontrast 1mm axial images were acquired from the pulmonary apices to the posterior costophrenic an gles. Axial 5 mm soft tissue kernel reconstructions were performed as well as 8 mm axial MIP and cor onal and sagittal 5 mm reformations. For radiation dose reduction, the following was used: automate d exposure control, adjustment of mA and/or kV according to patient size. COMPARISON: CT chest 10/19/2020. FINDINGS: Image quality: Fair. Respiratory motion. Lungs and pleura: Moderate emphysematous change. No mass. No new or enlarging pulmonary nodules. Right apex 0.2 cm, (3/42), stable to decreased. Left major fissure nodule is no longer appreciated. Mild honeycombing at the lung bases. No significant bronchiectasis. Prominent bleb in the left lower lobe, unchanged. Mediastinum: Heart size is normal. Three-vessel coronary artery calcifications. No pericardial effusi on. No large vessel abnormality. No mediastinal adenopathy by size criteria. Chest wall and lower neck: Thyroid is unremarkable. No axillary or supraclavicular adenopathy by size . Bones: No aggressive osseous abnormality. Upper Abdomen: Oval calcification near the tail the pancreas, unchanged. Small splenule. Mild thicken ing of the left adrenal gland, unchanged. IMPRESSION: No mass or significant pulmonary nodules. Mild fibrosis at the lower lobes, similar. Emphysematous change. Three-vessel coronary artery calcifications. Reviewed by: Jamal Velazquez MD on 02/05/2023 2:03 PM PDT Approved by: Jamal Velazquez MD on 02/05/2023 2:03 PM PDT Station ID: [id number]
== END 2023-02-05 09:00 | disposition home or self-care (01) ==
LOC: DI 08:59
PROVIDERS: ATTEND Internal Medicine
DX: Z09 Encounter for follow-up examination after completed treatment for conditions other than malignant neoplasm (principal); Z87.09 Personal history of other diseases of the respiratory system; Z72.0 Tobacco use; J84.10 Pulmonary fibrosis, unspecified; J43.9 Emphysema, unspecified

== ENCOUNTER 2024-01-11 03:54 | Outpatient (CLI) | payer MEDICARE, OTHER | END 2024-01-11 03:55 | disposition EMS.NT | LOC: EMS 03:54 | DX: E11.649 Type 2 diabetes mellitus with hypoglycemia without coma (principal); Z79.4 Long term (current) use of insulin ==

== ENCOUNTER 2024-07-28 20:02 | Observation (INO) ==
--- NOTE | 2024-07-28 20:10 | ED Physician Documentation ---
History of Present Illness Stated complaint Stated Complaint: LOW BLOOD SUGAR Chief complaint Chief Complaint: Neuro Additonal information Additional information: BIBA. HPI from patient, EMS. HPI/ROS limited from patient due to baseline dementia. Patient's called 911 due to AMS deviating from patient's baseline mental status. EMS arrived to find patient had a blood sugar of 18. He was given 12.5 g dextrose IV subsequent fingerstick blood sugar 156. Upon arrival to ED, fingerstick blood sugar is 19. EMS reports that said he patient was given 46 units of Lantus and 25 units of NovoLog at approximately 4:30 PM today and that he has not had any de paz bstantial PO intake since taking the insulin. Shortly after ED arrival, he is given 1 amp D50 (25 g dextrose IV), rapidly becomes awake and alert, conversant, slightly confused (knows he is in hospital but not which one, cannot even guess what year it is). He tells me he feels "just fine"; he denies having any pain anywhere, denies nausea, vomiting, visual changes, numbness, weakness. Meds/Allgy Home Medications Ambulatory Orders Medication Instructions Recorded Confirmed atorvastatin 20 mg tablet 40 mg PO DAILY 02/10/14 07/17/24 bupropion HCl 75 mg tablet 150 mg PO DAILY 02/10/14 07/17/24 (Wellbutrin) insulin glargine 100 unit/mL 40 unit SQ TID 02/10/14 07/17/24 subcutaneous solution (Lantus U-100 Insulin) tiotropium bromide 18 mcg capsule 18 mcg IH DAILY 11/11/14 07/17/24 with inhalation device (Spiriva with HandiHaler) omega-3 acid ethyl esters 1 gram 1 cap PO QID 12/24/17 07/17/24 capsule glucagon HCl 1 mg solution for 1 mg subcut Q20M PRN hypoglycemia 02/25/24 07/17/24 injection (Glucagon (HCl) #1 ea Emergency Kit) albuterol sulfate 90 mcg/actuation 2 puff inhalation Q6H PRN 04/24/24 04/24/24 aerosol inhaler felodipine 5 mg tablet,extended 5 mg PO QDAY 04/24/24 07/17/24 release 24 hr galantamine 16 mg 24 hr 16 mg PO QAM 04/24/24 07/17/24 capsule,extended release insulin aspart U-100 100 unit/mL 22 - 24 unit (0.22 - 0.24 mL) 05/29/24 07/17/24 (3 mL) subcutaneous pen (Novolog subcut TID #54 mL FlexPen U-100 Insulin aspart) cholecalciferol (vitamin D3) 25 25 mcg PO QDAY 07/17/24 07/17/24 mcg (1,000 unit) capsule glucagon 1 mg solution for See Rx Instructions subcut Q3H PRN 07/17/24 07/17/24 injection (Glucagon Emergency Kit) hydrocortisone 1 % topical cream 1 applic topical BID #28.4 grams 07/17/24 07/17/24 (Cortisone (hydrocortisone)) meloxicam 7.5 mg tablet 7.5 mg PO QDAY 07/17/24 07/17/24 methylcellulose (with sugar) oral 1 tbsp PO QDAY #454 grams 07/17/24 07/17/24 powder (Citrucel (sucrose) oral powder) omega-3 acid ethyl esters 1 gram 1 cap PO QDAY 07/17/24 07/17/24 capsule Allergies Allergies Allergy/AdvReac Type Severity Reaction Status Date / Time TITI Inhibitors AdvReac Unknown Unknown Verified 07/28/24 20:11 PFSH Active Problems All Active Problems (Updated 07/28/24 @ 23:56 by Shalom Cat MD) Hypoglycemia due to insulin (Acute) Hemorrhoids (Acute) Social History Social History Smoking Status: Current some day smoker Number of Years Smoked: 51 How many cigarettes a day do you smoke? (20 cigarettes=1 Pk): 10 Do you dip or chew tobacco?: No Patient requests smoking cessation consult: No Initiate information on smoking cessation: No Relationship: Level: Assisted Do you feel safe in your home environment?: Yes Suffered physical, verbal, emotional, or financial abuse?: No Exam Constitutional normal general appearance, no apparent distress and alert initially obtunded but rapidly becomes awake, alert, conversant (but confused) after 1 amp D50 IV HENMT normocephalic Eyes PERRL and EOMs intact bilaterally Respiratory normal respiratory effort and clear to auscultation bilaterally Cardiovascular normal heart rate noted, regular rhythm noted, no gallop, no rub and no murmur Gastrointestinal abdomen soft to palpation, nontender to palpation, nondistended and normoactive bowel sounds Neurology control room technician II-XII intact, no movement abnormality noted, no focal motor deficit noted, speech normal, no fasciculations noted and GCS 15 Psychiatry orientation abnormal (disoriented to place) (knows he is in a hospital, cannot determine which one) and (disoriented to time), cooperative, affect normal and memory abnormal Results Vitals Vitals: Vital Signs - 24 hr 07/28/24 20:08 07/28/24 20:11 07/28/24 20:26 Temperature 36.5 C Temperature Source Oral Pulse Rate 103 H 99 100 Respiratory Rate 20 20 16 Blood Pressure 162/82 H 140/81 H O2 Saturation 94 93 94 O2 Source Room air Room air Room air Pain Intensity 0 07/28/24 20:41 07/28/24 21:11 07/28/24 21:42 Temperature Temperature Source Pulse Rate 97 94 95 Respiratory Rate 18 16 18 Blood Pressure 114/79 125/78 110/65 O2 Saturation 94 96 96 O2 Source Room air Room air Pain Intensity 07/28/24 22:12 07/28/24 22:30 07/28/24 23:00 Temperature Temperature Source Pulse Rate 88 85 86 Respiratory Rate 18 16 16 Blood Pressure 104/63 117/69 120/70 O2 Saturation 94 96 96 O2 Source Room air Room air Room air Pain Intensity 0 07/28/24 23:51 07/29/24 00:00 07/29/24 00:41 Temperature Temperature Source Pulse Rate 90 85 87 Respiratory Rate 17 19 16 Blood Pressure 130/84 149/77 H 127/83 O2 Saturation 95 96 93 O2 Source Room air Room air Room air Pain Intensity 1 Oxygen O2 Source Room air Labs Labs: Laboratory Tests 07/28/24 07/28/24 07/28/24 20:04 20:16 20:22 WBC 9.8 RBC 4.84 Hgb 12.9 L Hct 41.8 L MCV 86.4 MCH 26.7 L MCHC 30.9 L RDW 13.6 Plt Count 283 MPV 9.5 Neut # (Auto) 6.5 Lymph # (Auto) 2.2 [place] # (Auto) 0.7 Eos # (Auto) 0.3 Baso # (Auto) 0.1 Absolute Nucleated RBC 0.00 Nucleated RBC % 0.0 Sodium 138 Potassium 3.2 L Chloride 105 Carbon Dioxide 25 Anion Gap 8.0 BUN 26 H Creatinine 1.2 Estimated GFR (MDRD) 59 L Glucose 117 H POC Whole Bld Glucose 19 168 Calcium 9.2 Total Bilirubin 0.2 AST 25 ALT 20 Alkaline Phosphatase 96 Total Protein 7.0 Albumin 3.8 Globulin 3.2 Albumin/Globulin Ratio 1.2 Lipase < 10 L Urine Color Urine Clarity Urine pH Ur Specific [place] Urine Protein Urine Glucose (UA) Urine Ketones Urine Occult Blood Urine Nitrite Urine Bilirubin Urine Urobilinogen Ur Leukocyte Esterase Ur Microscopic Review Urine Culture Comments Nasal Adenovirus (PCR) Nasal B. parapertussis DNA (PCR) Nasal Coronavir 229E PCR Nasal Coronavir HKU1 PCR Nasal Coronavir NL63 PCR Nasal Coronavir OC43 PCR Nasal Enterovir/Rhinovir PCR Nasal Influenza B PCR Nasal Influenza A PCR Nasal Parainfluen 1 PCR Nasal Parainfluen 2 PCR Nasal Parainfluen 3 PCR Nasal Parainfluen 4 PCR Nasal RSV (PCR) Nasal B.pertussis DNA PCR Nasal C.pneumoniae (PCR) Manuel Human Metapneumo PCR Nasal M.pneumoniae (PCR) Nasal SARS-CoV-2 (PCR) Ethyl Alcohol < 10.0 07/28/24 07/28/24 07/28/24 20:37 21:02 21:47 WBC RBC Hgb Hct MCV MCH MCHC RDW Plt Count MPV Neut # (Auto) Lymph # (Auto) [place] # (Auto) Eos # (Auto) Baso # (Auto) Absolute Nucleated RBC Nucleated RBC % Sodium Potassium Chloride Carbon Dioxide Anion Gap BUN Creatinine Estimated GFR (MDRD) Glucose POC Whole Bld Glucose 69 117 Calcium Total Bilirubin AST ALT Alkaline Phosphatase Total Protein Albumin Globulin Albumin/Globulin Ratio Lipase Urine Color Urine Clarity Urine pH Ur Specific [place] Urine Protein Urine Glucose (UA) Urine Ketones Urine Occult Blood Urine Nitrite Urine Bilirubin Urine Urobilinogen Ur Leukocyte Esterase Ur Microscopic Review Urine Culture Comments Nasal Adenovirus (PCR) NOT DETECTED Nasal B. parapertussis DNA (PCR) NOT DETECTED Nasal Coronavir 229E PCR NOT DETECTED Nasal Coronavir HKU1 PCR NOT DETECTED Nasal Coronavir NL63 PCR NOT DETECTED Nasal Coronavir OC43 PCR NOT DETECTED Nasal Enterovir/Rhinovir PCR NOT DETECTED Nasal Influenza B PCR NOT DETECTED Nasal Influenza A PCR NOT DETECTED Nasal Parainfluen 1 PCR NOT DETECTED Nasal Parainfluen 2 PCR NOT DETECTED Nasal Parainfluen 3 PCR NOT DETECTED Nasal Parainfluen 4 PCR NOT DETECTED Nasal RSV (PCR) NOT DETECTED Nasal B.pertussis DNA PCR NOT DETECTED Nasal C.pneumoniae (PCR) NOT DETECTED Manuel Human Metapneumo PCR NOT DETECTED Nasal M.pneumoniae (PCR) NOT DETECTED Nasal SARS-CoV-2 (PCR) NOT DETECTED Ethyl Alcohol 07/28/24 07/28/24 07/28/24 22:33 23:17 23:54 WBC RBC Hgb Hct MCV MCH MCHC RDW Plt Count MPV Neut # (Auto) Lymph # (Auto) [place] # (Auto) Eos # (Auto) Baso # (Auto) Absolute Nucleated RBC Nucleated RBC % Sodium Potassium Chloride Carbon Dioxide Anion Gap BUN Creatinine Estimated GFR (MDRD) Glucose POC Whole Bld Glucose 50 211 Calcium Total Bilirubin AST ALT Alkaline Phosphatase Total Protein Albumin Globulin Albumin/Globulin Ratio Lipase Urine Color YELLOW Urine Clarity CLEAR Urine pH 6.0 Ur Specific [place] 1.010 Urine Protein TRACE Urine Glucose (UA) 100 H Urine Ketones NEGATIVE Urine Occult Blood NEGATIVE Urine Nitrite NEGATIVE Urine Bilirubin NEGATIVE Urine Urobilinogen 0.2 (NORMAL) Ur Leukocyte Esterase NEGATIVE Ur Microscopic Review NOT INDICATED Urine Culture Comments NOT INDICATED Nasal Adenovirus (PCR) Nasal B. parapertussis DNA (PCR) Nasal Coronavir 229E PCR Nasal Coronavir HKU1 PCR Nasal Coronavir NL63 PCR Nasal Coronavir OC43 PCR Nasal Enterovir/Rhinovir PCR Nasal Influenza B PCR Nasal Influenza A PCR Nasal Parainfluen 1 PCR Nasal Parainfluen 2 PCR Nasal Parainfluen 3 PCR Nasal Parainfluen 4 PCR Nasal RSV (PCR) Nasal B.pertussis DNA PCR Nasal C.pneumoniae (PCR) Manuel Human Metapneumo PCR Nasal M.pneumoniae (PCR) Nasal SARS-CoV-2 (PCR) Ethyl Alcohol 07/29/24 00:39 WBC RBC Hgb Hct MCV MCH MCHC RDW Plt Count MPV Neut # (Auto) Lymph # (Auto) [place] # (Auto) Eos # (Auto) Baso # (Auto) Absolute Nucleated RBC Nucleated RBC % Sodium Potassium Chloride Carbon Dioxide Anion Gap BUN Creatinine Estimated GFR (MDRD) Glucose POC Whole Bld Glucose 127 Calcium Total Bilirubin AST ALT Alkaline Phosphatase Total Protein Albumin Globulin Albumin/Globulin Ratio Lipase Urine Color Urine Clarity Urine pH Ur Specific [place] Urine Protein Urine Glucose (UA) Urine Ketones Urine Occult Blood Urine Nitrite Urine Bilirubin Urine Urobilinogen Ur Leukocyte Esterase Ur Microscopic Review Urine Culture Comments Nasal Adenovirus (PCR) Nasal B. parapertussis DNA (PCR) Nasal Coronavir 229E PCR Nasal Coronavir HKU1 PCR Nasal Coronavir NL63 PCR Nasal Coronavir OC43 PCR Nasal Enterovir/Rhinovir PCR Nasal Influenza B PCR Nasal Influenza A PCR Nasal Parainfluen 1 PCR Nasal Parainfluen 2 PCR Nasal Parainfluen 3 PCR Nasal Parainfluen 4 PCR Nasal RSV (PCR) Nasal B.pertussis DNA PCR Nasal C.pneumoniae (PCR) Manuel Human Metapneumo PCR Nasal M.pneumoniae (PCR) Nasal SARS-CoV-2 (PCR) Ethyl Alcohol PD Medical Decision Making ED course Complexity details: reviewed results, re-evaluated patient, considered differential and d/w patient ED course: Presents via ambulance due to hypoglycemia. He is given 1 amp D50 IV shortly after ED arrival for fingerstick blood sugar 19. Over the ensuing 3 hours, the patient was given juice, crackers, sandwich; he was eating and drinking the majority of the juice and food that he is provided. Despite this, his blood sugar dropped back down to 50. He was given another amp of D50. I discussed this case with [facility] and they accept patient for admit to observation for ongoing monitoring of his blood sugars. Discharge Plan Discharge Patient Disposition: ED Place in Observation Condition: Stable Clinical Impression: Hypoglycemia due to insulin Interventions: ED Admission Assessment Last Done: 07/29/24 01:15
[2024-07-28] MEDS: DEXTROSE 50% ABBOJECT 25 GM/50 ML SYRINGE IVP STA ×2 (20:18→23:37)
[2024-07-28 20:27] LABS: BASOPHILS # (AUTO) 0.1 10^3/uL (0.0-0.1); BASOPHILS % (AUTO) 0.9 %; EOSINOPHILS # (AUTO) 0.3 10^3/uL (0.0-0.7); EOSINOPHILS % (AUTO) 2.8 %; HCT - HEMATOCRIT 41.8 % (42.0-52.0); HGB - HEMOGLOBIN 12.9 g/dL (14.0-18.0); LYMPHOCYTES # (AUTO) 2.2 10^3/uL (1.5-3.5); MEAN CORPUSCULAR HEMOGLOBIN 26.7 pg (27.0-31.0); MEAN CORPUSCULAR HGB CONC 30.9 g/dL (32.0-36.0); MEAN CORPUSCULAR VOLUME 86.4 fL (80.0-94.0); MEAN PLATELET VOLUME 9.5 fL (7.4-11.4); MONOCYTES # (AUTO) 0.7 10^3/uL (0.0-1.0); MONOCYTES % (AUTO) 7.5 %; NEUTROPHILS # (AUTO) 6.5 10^3/uL (1.5-6.6); NEUTROPHILS % (AUTO) 66.4 %; PLT - PLATELET COUNT 283 10^3/uL (130-450); RED BLOOD COUNT 4.84 10^6/uL (4.70-6.10); RED CELL DISTRIBUTION WIDTH 13.6 % (12.0-15.0); WHITE BLOOD COUNT 9.8 x10^3/uL (4.8-10.8)
[2024-07-28 20:40] LABS: ALBUMIN 3.8 g/dL (3.2-5.5); ALBUMIN/GLOBULIN RATIO 1.2 (1.0-2.2); ALKALINE PHOSPHATASE 96 IU/L (42-121); ALT ALANINE AMINOTRANSFERASE 20 IU/L (10-60); AST ASPARTATE AMINOTRANSFERASE 25 IU/L (10-42); BILIRUBIN,TOTAL 0.2 mg/dL (0.2-1.0); BUN - BLOOD UREA NITROGEN 26 mg/dL (6-20); CALCIUM 9.2 mg/dL (8.5-10.3); CARBON DIOXIDE - CO2 25 mmol/L (21-32); CHLORIDE 105 mmol/L (101-111); CREATININE 1.2 mg/dL (0.6-1.3); ETOH - ETHANOL < 10.0 mg/dL; GFR - MDRD 59 (>89); GLUCOSE 117 mg/dL (74-104); LIPASE < 10 U/L (11-82); POTASSIUM 3.2 mmol/L (3.5-4.5); SODIUM 138 mmol/L (135-145)
[2024-07-28 21:46] LABS: B. PARAPERTUSSIS- RESP PCR PAN NOT DETECTED; B. PERTUSSIS- RESP PCR PANEL NOT DETECTED; C. PNEUMONIAE- RESP PCR PANEL NOT DETECTED; CORONAVIRUS 229E-RESP PCR NOT DETECTED; CORONAVIRUS HKU1-RESP PCR NOT DETECTED; CORONAVIRUS NL63-RESP PCR NOT DETECTED; CORONAVIRUS OC43-RESP PCR NOT DETECTED; HUMAN METAPNEUMOVIRUS NOT DETECTED; INFLUENZA A- RESP PCR PANEL NOT DETECTED; INFLUENZA B - RESP PCR PANEL NOT DETECTED; M. PNEUMONIAE- RESP PCR PANEL NOT DETECTED; PARAINFLUENZA VIRUS 1 NOT DETECTED; PARAINFLUENZA VIRUS 2 NOT DETECTED; PARAINFLUENZA VIRUS 4 NOT DETECTED; RHINOVIRUS/ENTEROVIRUS NOT DETECTED; RSV- RESP PCR PANEL NOT DETECTED; SARS-CoV-2 -RESP PCR PANEL NOT DETECTED
[2024-07-28 22:40] LABS: BILIRUBIN,URINE NEGATIVE (NEGATIVE); GLUCOSE, URINE (UA) 100 mg/dL (NEGATIVE); KETONES,URINE (UA) NEGATIVE (NEGATIVE); LEUKOCYTE ESTERASE, URINE NEGATIVE (NEGATIVE); NITRITE,URINE NEGATIVE (NEGATIVE); OCCULT BLOOD,URINE NEGATIVE (NEGATIVE); PROTEIN,URINE TRACE mg/dL (NEGATIVE); UROBILINOGEN,URINE 0.2 (NORMAL) E.U./dL (NORMAL)
[2024-07-28 22:44] LABS: CLARITY,URINE CLEAR (CLEAR)
[2024-07-29] MEDS ORDERED: ACETAMINOPHEN 325 MG TABLET PO PRN (00:44)
[2024-07-29] MEDS ORDERED: ONDANSETRON 4 MG/2 ML VIAL IVP PRN (00:44)
[2024-07-29] MEDS ORDERED: SODIUM CHLORIDE FLUSH 0.9% 10 ML SYRINGE IVP PRN (00:44)
[2024-07-29] MEDS ORDERED: DEXTROSE 50% ABBOJECT 25 GM/50 ML SYRINGE IVP PRN (00:49)
--- NOTE | 2024-07-29 00:54 | HISTORY & PHYSICAL EXAMINATION ---
Chief Complaint Chief Complaint Chief Complaint: hypoglycemia History of Present Illness Admitted From Admitted From:: home History Obtained From History obtained from: ER provider, chart review Exam Limitations: telemedicine, patient uncooperative History of Present Illness HPI Comment/Other: Mr Avitia is a 79 yo M with history of insulin dependent DM II, HTN, HLD. Presents to ER via EMS for altered mental status - per discussion with ER provider patient was confused, improved after receiving D50. Initial blood glucose was 18 per EMS, treated with 12.5 g IV dextrose, improved to 156. In the ER his sugar was back down to 19. EMS reports that said he patient was given 46 units of Lantus and 25 units of NovoLog at approximately 4:30 PM, poor PO intake. Per MAR patient is scheduled Lantus 40 units TID (medication reconcilation verification is pending). In the ER patient has had waxing and waning mentation, after receiving D50 he rapidly improves and becomes more oriented (hospital, but not city, etc), now last blood glucose was 51 and he received D50, improved to 211, but was not cooperative with ER provider, and I attempted video visit to which he responded "F you", refused to answer any questions, looked away. No distress, awake and alert. Hemodynamically stable, afebrile. Review of Systems Status of ROS: unobtainable due to mental status (patient refused to answer any ROS questions ) PFSH Active Problems All Active Problems (Updated 07/28/24 @ 23:56 by Shalom Cat MD) Hypoglycemia due to insulin (Acute) Hemorrhoids (Acute) Social History Social History Smoking Status: Current every day smoker Number of Years Smoked: 51 How many cigarettes a day do you smoke? (20 cigarettes=1 Pk): 10 Do you dip or chew tobacco?: No Patient requests smoking cessation consult: No Initiate information on smoking cessation: No Relationship: Do you feel safe in your home environment?: Yes Suffered physical, verbal, emotional, or financial abuse?: No Meds/Allgy Home Medications Ambulatory Orders Medication Instructions Recorded Confirmed atorvastatin 20 mg tablet 40 mg PO DAILY 02/10/14 07/17/24 bupropion HCl 75 mg tablet 150 mg PO DAILY 02/10/14 07/17/24 (Wellbutrin) insulin glargine 100 unit/mL 40 unit SQ TID 02/10/14 07/17/24 subcutaneous solution (Lantus U-100 Insulin) tiotropium bromide 18 mcg capsule 18 mcg IH DAILY 11/11/14 07/17/24 with inhalation device (Spiriva with HandiHaler) omega-3 acid ethyl esters 1 gram 1 cap PO QID 12/24/17 07/17/24 capsule glucagon HCl 1 mg solution for 1 mg subcut Q20M PRN hypoglycemia 02/25/24 07/17/24 injection (Glucagon (HCl) #1 ea Emergency Kit) albuterol sulfate 90 mcg/actuation 2 puff inhalation Q6H PRN 04/24/24 04/24/24 aerosol inhaler felodipine 5 mg tablet,extended 5 mg PO QDAY 04/24/24 07/17/24 release 24 hr galantamine 16 mg 24 hr 16 mg PO QAM 04/24/24 07/17/24 capsule,extended release insulin aspart U-100 100 unit/mL 22 - 24 unit (0.22 - 0.24 mL) 05/29/24 07/17/24 (3 mL) subcutaneous pen (Novolog subcut TID #54 mL FlexPen U-100 Insulin aspart) cholecalciferol (vitamin D3) 25 25 mcg PO QDAY 07/17/24 07/17/24 mcg (1,000 unit) capsule glucagon 1 mg solution for See Rx Instructions subcut Q3H PRN 07/17/24 07/17/24 injection (Glucagon Emergency Kit) hydrocortisone 1 % topical cream 1 applic topical BID #28.4 grams 07/17/24 07/17/24 (Cortisone (hydrocortisone)) meloxicam 7.5 mg tablet 7.5 mg PO QDAY 07/17/24 07/17/24 methylcellulose (with sugar) oral 1 tbsp PO QDAY #454 grams 07/17/24 07/17/24 powder (Citrucel (sucrose) oral powder) omega-3 acid ethyl esters 1 gram 1 cap PO QDAY 07/17/24 07/17/24 capsule Allergies Allergies Allergy/AdvReac Type Severity Reaction Status Date / Time TITI Inhibitors AdvReac Unknown Unknown Verified 07/28/24 20:11 Exam Constitutional normal general appearance, no apparent distress and alert HENAZ normocephalic Respiratory normal respiratory effort Psychiatry mental status abnormal, orientation abnormal, thought process abnormality noted and uncooperative Skin skin color normal Conclusion/Plan Lab Results Lab results reviewed: Yes 07/28/24 20:22 07/28/24 20:22 Other Other Results/Comments: Assessment/Plan: Recurrent hypoglycemia Acute metabolic encepahalopathy DM II, insulin dependent -Etiology unclear, patient is on TID (?) Lantus dosing per JUL - med rec verification is pending, patient uncooperative with exam/history unable to obtain further details at this time -Possible related to insulin regimen and poor PO appetite -UA unremarkable, afebrile, awake and alert but uncooperative at this time, difficult to assess mentation/encephalopathy -Blood glucose wax/wanes, has received two doses of D50 in ER -Continue glucose checks q2h -Hypoglycemia protocol with D50 PRN -Holding on D5 infusion for now to prevent hyperglycemia -Follow up A1c -Follow up BMP Hypokalemia -Replete, trend labs HTN, HLD -Resume home medications pending med rec verification DVT ppx: Lovenox sc Admit for observation. Telemedicine Consult Details Provider Location & Consult Time List names and roles of persons who participated in consult:: Kaity GAY, patient, ER provider (phone) Telemedicine provider location:: [facility]
[2024-07-29] MEDS: SODIUM CHLORIDE FLUSH 0.9% 10 ML SYRINGE IVP SCH (03:32)
[2024-07-29] MEDS: POTASSIUM CHLORIDE 20 MEQ TABLET PO ONE (03:40)
[2024-07-29 05:15] VITALS: TEMP 97.9
[2024-07-29 08:05] VITALS: BP 122/73; O2SAT 97
[2024-07-29 08:50] LABS: CALCIUM 9.1 mg/dL (8.5-10.3); CREATININE 1.2 mg/dL (0.6-1.3); POTASSIUM 4.4 mmol/L (3.5-4.5)
[2024-07-29] MEDS: ENOXAPARIN 40 MG/0.4 ML SYRINGE SUBQ SCH (09:06)
[2024-07-29 12:00] LABS: ESTIMATED AVERAGE GLUCOSE 212 mg/dL (70-100)
--- NOTE | 2024-07-29 12:08 | PHARMACY PROGRESS NOTE ---
Best Possible Medication History Admit Date and Time: 07/29/24 0044 Home Medications Medication Instructions Recorded Confirmed Type tiotropium bromide 18 mcg capsule 18 mcg IH DAILY 11/11/14 07/29/24 History with inhalation device (Spiriva with HandiHaler) omega-3 acid ethyl esters 1 gram 4 cap PO DAILY 12/24/17 07/29/24 History capsule albuterol sulfate 90 mcg/actuation 2 puff inhalation Q6H PRN 04/24/24 07/29/24 History aerosol inhaler shortness of breath or wheezing felodipine 5 mg tablet,extended 5 mg PO QDAY 04/24/24 07/29/24 History release 24 hr galantamine 16 mg 24 hr 16 mg PO QAM 04/24/24 07/29/24 History capsule,extended release cholecalciferol (vitamin D3) 25 25 mcg PO QDAY 07/17/24 07/29/24 History mcg (1,000 unit) capsule glucagon 1 mg solution for 1 mg subcut Q3H PRN hypoglycemia 07/17/24 07/29/24 History injection (Glucagon Emergency Kit) meloxicam 7.5 mg tablet 7.5 mg PO QDAY 07/17/24 07/29/24 History atorvastatin 40 mg tablet (Lipitor) 40 mg PO QPM 07/29/24 07/29/24 History bupropion HCl 150 mg tablet,12 hr 150 mg PO DAILY 07/29/24 07/29/24 History sustained-release (Wellbutrin SR) hydrocortisone 1 % topical cream 1 applic topical BID PRN 07/29/24 07/29/24 History (Cortisone (hydrocortisone)) hemorrhoids insulin aspart U-100 100 unit/mL 27 - 29 unit subcut TID 07/29/24 07/29/24 History (3 mL) subcutaneous pen (Novolog FlexPen U-100 Insulin aspart) insulin glargine 100 unit/mL (3 46 unit subcut DAILY 07/29/24 07/29/24 History mL) subcutaneous pen (Lantus Solostar U-100 Insulin) methylcellulose (with sugar) oral 1 tbsp PO QDAY PRN hemorrhoids 07/29/24 07/29/24 History powder (Citrucel (sucrose) oral powder) Processed by: Pharmacy Medication History completed: Yes Patient Interview: Pt unable to participate Secondary Source(s): Written medication list (Patient's 's medication list shows atorvastatin, bupropion, galantamine, meloxicam, and spiriva. She states only fills meds with [facility] pharmacy. I spoke with [facility] pharmacy and they have not filled any of these in over 1 year. Has been filling novolog, lantus, and felodipine only. ), Spouse/Significant other (Patient's is aware of fill hx discrepancy and will check expirations and fill dates on bottle. is possible Lauro has been putting them back in the bottle instead of taking them.), Pharmacy records and Insurance records [facility] Statement: As the person ultimately responsible for medication therapy, providers are able to order a medication from an existing home medication list in [facility] via the "Reconcile Routine" prior to Confirmation of that medication by patient support partner. Such practice is discouraged except when the physician, in their clinical judgment, deems that a medical need exists for a medication without regard to previous use.
--- NOTE | 2024-07-29 12:28 | Discharge Summary ---
Discharge Summary Admit Date: 07/29/24 Discharge Date: 07/29/24 Discharging Provider: Pan Maldonado NP Primary Care Provider: Bethany Code Status: Attempt Resuscitation DIAGNOSES Admission Diagnoses: Hypoglycemia, unspecified Discharge Diagnoses with Status of Each Condition: Hypoglycemia, unspecifiedresolved, likely secondary to high insulin regimen Type 1 diabeteschronic HPI History of Present Illness: Mr Avitia is a 79 yo M with history of insulin dependent DM II, HTN, HLD. Presents to ER via EMS for altered mental status - per discussion with ER provider patient was confused, improved after receiving D50. Initial blood glucose was 18 per EMS, treated with 12.5 g IV dextrose, improved to 156. In the ER his sugar was back down to 19. EMS reports that said he patient was given 46 units of Lantus and 25 units of NovoLog at approximately 4:30 PM, poor PO intake. Per MAR patient is scheduled Lantus 40 units TID (medication reconcilation verification is pending). In the ER patient has had waxing and waning mentation, after receiving D50 he rapidly improves and becomes more oriented (hospital, but not city, etc), now last blood glucose was 51 and he received D50, improved to 211, but was not cooperative with ER provider, and I attempted video visit to which he responded "F you", refused to answer any questions, looked away. No distress, awake and alert. Hemodynamically stable, afebrile. HOSPITAL COURSE Hospital Course: He was held in observation, while we continue to replete his low glucose levels. It appears that he is on high-dose insulin regimen as was ordered 15 years ago when he was 20 kg heavier than he is now. I am discharging him home with a reduced dose of insulin and rapid follow-up with his PCP. Of note, pharmacy reports that the only medications that he has filled within the past year are his insulins and his felodipine ALLERGIES Allergies Allergy/AdvReac Type Severity Reaction Status Date / Time TITI Inhibitors AdvReac Unknown Unknown Verified 07/28/24 20:11 MEDICATIONS Ambulatory Orders Medication Instructions Recorded Confirmed tiotropium bromide 18 mcg capsule 18 mcg IH DAILY 11/11/14 07/29/24 with inhalation device (Spiriva with HandiHaler) omega-3 acid ethyl esters 1 gram 4 cap PO DAILY 12/24/17 07/29/24 capsule albuterol sulfate 90 mcg/actuation 2 puff inhalation Q6H PRN 04/24/24 07/29/24 aerosol inhaler shortness of breath or wheezing felodipine 5 mg tablet,extended 5 mg PO QDAY 04/24/24 07/29/24 release 24 hr galantamine 16 mg 24 hr 16 mg PO QAM 04/24/24 07/29/24 capsule,extended release cholecalciferol (vitamin D3) 25 25 mcg PO QDAY 07/17/24 07/29/24 mcg (1,000 unit) capsule glucagon 1 mg solution for 1 mg subcut Q3H PRN hypoglycemia 07/17/24 07/29/24 injection (Glucagon Emergency Kit) meloxicam 7.5 mg tablet 7.5 mg PO QDAY 07/17/24 07/29/24 atorvastatin 40 mg tablet (Lipitor) 40 mg PO QPM 07/29/24 07/29/24 bupropion HCl 150 mg tablet,12 hr 150 mg PO DAILY 07/29/24 07/29/24 sustained-release (Wellbutrin SR) hydrocortisone 1 % topical cream 1 applic topical BID PRN 07/29/24 07/29/24 (Cortisone (hydrocortisone)) hemorrhoids insulin aspart U-100 100 unit/mL 1 sliding scale dose subcut 07/29/24 (3 mL) subcutaneous pen (Novolog USEASDIRECTD #15 mL FlexPen U-100 Insulin aspart) insulin glargine 100 unit/mL (3 10 unit (0.1 mL) subcut DAILY #3 mL 07/29/24 07/29/24 mL) subcutaneous pen (Lantus Solostar U-100 Insulin) methylcellulose (with sugar) oral 1 tbsp PO QDAY PRN hemorrhoids 07/29/24 07/29/24 powder (Citrucel (sucrose) oral powder) PHYSICAL EXAM AT DISCHARGE General Appearance: positive No acute distress and Alert Eyes Bilateral: positive Normal inspection and PERRL ENT: positive ENT inspection nml Neck: positive Nml inspection Respiratory: positive Chest non-tender Cardiovascular: positive Regular rate & rhythm Peripheral Pulses: positive 2+ Abdomen: positive Non-tender Back: positive Nml inspection Skin: positive Color nml Extremities: positive Non-tender Neurologic/Psychiatric: positive Oriented x3 LABS 07/28/24 20:22 03/26/25 08:27 FOLLOW UP Follow Up: With PCP TIME SPENT Time Spent in Discharge (Minutes): 25 Discharge Plan Discharge Patient Disposition: 01 Home, Self Care Condition: Stable Medically Cleared Date:: 07/29/24 Prescriptions: New insulin aspart U-100 [Novolog FlexPen U-100 Insulin] 100 unit/mL (3 mL) insulin pen 1 sliding scale dose subcut USEASDIRECTD Qty: 15 2RF Continued tiotropium bromide [Spiriva with HandiHaler] 18 MCG capsule, w/inhalation device 18 mcg IH DAILY omega-3 acid ethyl esters 1 GM capsule 4 cap PO DAILY atorvastatin [Lipitor] 40 mg tablet 40 mg PO QPM bupropion HCl [Wellbutrin SR] 150 mg tablet sustained-release 12 hr 150 mg PO DAILY hydrocortisone [Cortisone (hydrocortisone)] 1 % cream 1 applic topical BID PRN (Reason: hemorrhoids) Citrucel (sucrose) Powder 1 tbsp PO QDAY PRN (Reason: hemorrhoids) Rx Instructions: Mix in a glass of water in the morning, drink, then mohit with a clear glass of water daily to help with hemorrhoids Glucagon Emergency Kit (human) 1 mg recon soln 1 mg subcut Q3H PRN (Reason: hypoglycemia) Patient Comments: Provider directions to be up dated 07/17/24 Rx Instructions: subcutaneously every 3 hours PRN; meloxicam 7.5 mg tablet 7.5 mg PO QDAY cholecalciferol (vitamin D3) 25 mcg (1,000 unit) capsule 25 mcg PO QDAY felodipine 5 mg tablet extended release 24 hr 5 mg PO QDAY galantamine 16 mg capsule,ext rel. pellets 24 hr 16 mg PO QAM Rx Instructions: administer with breakfast albuterol sulfate 90 mcg/actuation HFA aerosol inhaler 2 puff inhalation Q6H PRN (Reason: shortness of breath or wheezing) Changed insulin glargine [Lantus Solostar U-100 Insulin] 100 unit/mL (3 mL) insulin pen 10 unit SUBCUT DAILY Qty: 3 0RF Discontinued insulin aspart U-100 [Novolog FlexPen U-100 Insulin] 100 unit/mL (3 mL) insulin pen 27 - 29 unit subcut TID Diet: Diabetic Interventions: Discharge Last Done: 07/29/24 14:08 Discharge Checklist - Nursing Last Done: 07/29/24 14:08 Health Concerns: You came into the hospital because your blood sugar was low. I suspect this is because you are insulin regimen is too high. You were placed on this regimen a long time ago, before you lost a significant amount of weight. Insulin dosage is somewhat weight dependent. I am reducing your dose of insulin to only 10 units of your Lantus once daily. Your A1c was elevated, so I am adding a sliding scale insulin regimen as described below. You have a follow-up appointment with your PCP and with the diabetes nurse educator. They will manage your insulin regimen going forward. Please continue a controlled carb diet and remain as active as possible Meal insulin: Check sugar before each meal Glucose 141-180, give 1 unit 181-225, 2 units 226-275, 3 units 276-325, 4 units 326-375, 5 units Greater than 375, contact with care provider Print Language: Welsh Patient Instructions: Hypoglycemia Stand Alone Forms: PCP List Follow-up Care: Jimi Gtz, JULIETA, VASCULAR ULTRASOUND TECHNICIAN, MIDDLEWARE CONSULTANT [Primary Care Provider] -
== END 2024-07-29 14:09 | disposition home or self-care (01) ==
LOC: ED 20:02 → MS2 20:02
PROVIDERS: ADMIT Student in an Organized Health Care Education/Training Program; ATTEND Student in an Organized Health Care Education/Training Program
DX: I10 Essential (primary) hypertension; Z79.899 Other long term (current) drug therapy; F17.210 Nicotine dependence, cigarettes, uncomplicated; E78.5 Hyperlipidemia, unspecified; I44.4 Left anterior fascicular block; E87.6 Hypokalemia; E10.649 Type 1 diabetes mellitus with hypoglycemia without coma